=== PATIENT | male | born 1970 | race Two or more races ===

== ENCOUNTER 2018-03-18 15:20 | Emergency (ER) | payer SELFPAY ==
[~2018-03-18] VITALS: Ht 177.8 cm; Wt 149.7 kg
--- NOTE | 2018-03-18 16:20 | PHYS DOC ---
Adult General Chief Complaint Chief Complaint: RIB PAIN HPI HPI Patient is a 47 year old male who presents with rib pain after he fell. He denies any other injury. The patient denies SOA. The patient states this happened at [employer] prior to arrival. There is no break in the skin. The patient is very anxious and seems to be in a great deal of pain. Review of Systems Review of Systems Constitutional: Denies fever or chills [] Eyes: Denies change in visual acuity, redness, or eye pain [] HENT: Denies nasal congestion or sore throat [] Respiratory: Denies cough or shortness of breath [] Cardiovascular: No additional information not addressed in HPI [] GI: Denies abdominal pain, nausea, vomiting, bloody stools or diarrhea [] : Denies dysuria or hematuria [] Musculoskeletal: See HPI Integument: Denies rash or skin lesions [] Neurologic: Denies headache, focal weakness or sensory changes [] Endocrine: Denies polyuria or polydipsia [] All other systems were reviewed and found to be within normal limits, except as documented in this note. Current Medications Current Medications Current Medications Medications (Trade) Dose Ordered Sig/[facility] Start Time Stop Time Status Last Admin Dose Admin Fentanyl Citrate (Fentanyl 2ml Vial) 75 mcg 1X ONCE 03/18/18 16:30 03/18/18 16:31 DC 03/18/18 17:02 75 MCG Lorazepam (Ativan) 1 mg PRN Q4HRS PRN 03/18/18 16:30 03/18/18 18:08 DC 03/18/18 17:02 1 MG Allergies Allergies Allergies Coded Allergies Type Severity Reaction Last Updated Verified No Known Drug Allergies 03/18/18 No Physical Exam Physical Exam Constitutional: Well developed, well nourished, no acute distress, non-toxic appearance. [] Cardiovascular:Heart rate regular rhythm, no murmur [] Lungs & Thorax: Bilateral breath sounds clear to auscultation, tenderness to right mid ribs with palpation, no gross deformity noted, no erythema or ecchymosis noted[] Abdomen: Bowel sounds normal, soft, no tenderness, no masses, no pulsatile masses. [] Skin: Warm, dry, no erythema, no rash. [] Back: No tenderness, no CVA tenderness. [] Extremities: No tenderness, no cyanosis, no clubbing, ROM intact, no edema. [] Neurologic: Alert and oriented X 3, normal motor function, normal sensory function, no focal deficits noted. [] Psychologic: Affect normal, judgement normal, mood normal. [] Current Patient Data Vital Signs EKG EKG [] Radiology/Procedures Radiology/Procedures []Signed PATIENT: NADYA PEREZ ACCOUNT: [id number] : 1970 LOCATION: ER AGE: 47 SEX: M EXAM STATUS: REG ER ORD. PHYSICIAN: TANIYA SLAUGHTER APRN REASON: fell on ice PROCEDURE: RIBS RIGHT AND PA CHEST EXAM: Chest and right ribs, 4 views. HISTORY: Pain. Fall. COMPARISON: None. FINDINGS: A frontal view the chest and 3 views of the right ribs are obtained. There is no infiltrate, pleural effusion or pneumothorax. The heart is normal in size. No displaced rib fracture is seen. IMPRESSION: No acute pulmonary or osseous finding. Electronically signed by: Deepa Ibanez MD (03/18/2018 4:53 PM) [facility] DICTATED and SIGNED BY: DEEPA IBANEZ MD DATE: 03/18/181651 Course & Med Decision Making Course & Med Decision Making Pertinent Labs and Imaging studies reviewed. (See chart for details) []The patient was given fentanyl and has pain in the emergency department for his pain and anxiety. There was no acute abnormality found on x-ray. The patient will be discharged home. Dragon Disclaimer Dragon Disclaimer This electronic medical record was generated, in whole or in part, using a voice recognition dictation system. Departure Departure Impression: Primary Impression: Rib contusion Disposition: HOME, SELF-CARE Condition: STABLE Referrals: UNKNOWN PCP NAME (PCP) Patient Instructions: Rib Contusion Additional Instructions: You may take ibuprofen or Tylenol for pain. Follow-up with your primary care provider in 3 days if not improving or return to the emergency department if worsening. TANIYA SLAUGHTER APRN Mar 18, 2018 16:20
[2018-03-18] MEDS ORDERED: fentaNYL PF VIAL 100 MCG/2 ML VIAL IV ONE (16:30)
--- NOTE | 2018-03-18 16:57 | RAD ---
EXAM: Chest and right ribs, 4 views. HISTORY: Pain. Fall. COMPARISON: None. FINDINGS: A frontal view the chest and 3 views of the right ribs are obtained. There is no infiltrate, pleural effusion or pneumothorax. The heart is normal in size. No displaced rib fracture is seen. IMPRESSION: No acute pulmonary or osseous finding. Electronically signed by: Deepa Ibanez MD (03/18/2018 4:53 PM) [place] [id number]
[2018-03-18 18:00] VITALS: BP 136/79
== END 2018-03-18 18:07 | disposition home or self-care (01) ==
LOC: ER 15:20
DX: S20.211A Contusion of right front wall of thorax, initial encounter (principal); W18.39XA Other fall on same level, initial encounter; Y93.89 Activity, other specified; Y92.412 Parkway as the place of occurrence of the external cause; Y99.8 Other external cause status
CPT/HCPCS: 71101; 96374; 96375; 99284; J2060; J3010